=== PATIENT | female | born 1955 | race Hispanic/Latino ===

== ENCOUNTER 2019-01-02 19:26 | Emergency (ER) | payer OTHER ==
[~2019-01-02] VITALS: Ht 157.5 cm; Wt 66.2 kg
[~2019-01-02 19:26] MED LIST: CALCIUM 600 +1 EAC8 PO; CENTRUM TABLET1 EACH PO; LISINOPRIL20 MG PO; VICODIN ES 7.51 EACH PO; VITAMIN B12 PO
--- OUTSIDE RECORDS SUMMARY | 2019-01-02 19:31 | XMS REPORT ---
Author Author Sarah Ellis Organization [employer] Address Unknown Phone Unavailable Care Team Providers Care Supply Chain Business Analyst Name Role Phone Sarah Ellis CP Unavailable Allergies, Adverse Reactions, Alerts Substance Reaction Event Type sulfa shortness of breath Drug Allergy Problems Problem Type Condition Code Onset Dates Condition Status Problem Essential hypertension I10 Active Problem Colon cancer screening Z12.11 Active Problem Diffuse cystic mastopathy of right breast N60.11 Active Problem Adjustment disorder with anxiety F43.22 Active Problem Neuropathy G62.9 Active Problem RLS (restless legs syndrome) G25.81 Active Problem Cervical cancer screening Z12.4 Active Problem Breast cancer screening Z12.39 Active Problem Gastroesophageal reflux disease without esophagitis K21.9 Active Problem Fibrocystic breast disease, unspecified laterality N60.19 Active Assessment Mild anemia D64.9 Active Assessment Leg cramps R25.2 Active Assessment RLS (restless legs syndrome) G25.81 Active Medications Medication Code System Code Instructions Start Date End Date Status Dosage Vitamin D [facility] [address]-15 Once a day Active 2 tablets Lisinopril [facility] 81836142509 20 MG Orally Once a day Active 1 tablet Amoxicillin [facility] [address]-24 875 MG Orally every 12 hrs for 10 days Active 1 tablet Tobramycin-Dexamethasone [facility] 59903826502 0.3-0.1 % Ophthalmic every 6 hrs Mar 13, 2018 Active 1 drop into affected eye Alive Once Daily Womens 50+ [facility] [address] Active not defined Cyanocobalamin [facility] [address]-17 1000 MCG Sublingual Once a day Jun 12, 2018 Dec 09, 2018 Active 1 tablet under the tongue and allow to dissolve Sertraline HCl [facility] 64079631203 25 MG Orally Once a day Jan 12, 2018 Active 1 tablet Xanax [facility] 80125807392 0.25 MG Orally once a day as needed Jan 12, 2018 Active 1 tablet Tamiflu [facility] 41647424626 75 MG Orally Twice a day Active 1 capsule Ropinirole HCl [facility] 21584707838 0.25 MG Orally Once a day Active 1 tablet 1 to 3 hours before bedtime Vital Signs Date/Time: Jun 12, 2018 BMI 25.51 Index Weight 144 lbs Height 63 in Temperature 98.1 F Blood Pressure Diastolic 79 mm Hg Blood Pressure Systolic 128 mm Hg Results No Known Results Summary Purpose [employer] Submission
--- OUTSIDE RECORDS SUMMARY | 2019-01-02 19:31 | XMS REPORT ---
Author Author Sarah Ellis Organization [employer] Address Unknown Phone Unavailable Care Team Providers Care Pbx Operator Name Role Phone Sarah Ellis CP Unavailable Allergies, Adverse Reactions, Alerts Substance Reaction Event Type sulfa shortness of breath Drug Allergy Problems Problem Type Condition Code Onset Dates Condition Status Assessment Closed nondisplaced fracture of phalanx of right little finger with routine healing, unspecified phalanx, subsequent encounter S62.606D Active Assessment Dog bite, initial encounter W54.0XXA Active Assessment Cellulitis of right hand L03.113 Active Problem Fibrocystic breast disease, unspecified laterality N60.19 Active Problem Diffuse cystic mastopathy of right breast N60.11 Active Problem Gastroesophageal reflux disease without esophagitis K21.9 Active Problem Colon cancer screening Z12.11 Active Problem Cervical cancer screening Z12.4 Active Problem Essential hypertension I10 Active Problem Breast cancer screening Z12.39 Active Medications Medication Code System Code Instructions Start Date End Date Status Dosage Alive Once Daily Womens 50+ [facility] [address] Active not defined Lisinopril [facility] 20710498869 20 MG Orally Once a day Active 1 tablet Pantoprazole Sodium [facility] 47757031698 40 MG Orally Once a day October 21, 2016 Active 1 tablet Amoxicillin-Pot Clavulanate [facility] 25848871168 875-125 MG Orally every 12 hrs Twice a day Active 1 tablet Vitamin D [facility] [address]-60 Once a day Active 2 tablets Vital Signs Date/Time: Feb 01, 2017 BMI 25.15 Index Weight 142 lbs Height 63 in Temperature 97.2 F Blood Pressure Diastolic 89 mm Hg Blood Pressure Systolic 135 mm Hg Results No Known Results Summary Purpose [employer] Submission
--- OUTSIDE RECORDS SUMMARY | 2019-01-02 19:31 | XMS REPORT ---
Author Author Sarah Ellis Organization [employer] Address Unknown Phone Unavailable Care Team Providers Care Water Taxi Driver Name Role Phone Sarah Ellis CP Unavailable Allergies No Known Allergies Problems Problem Type Condition Code Onset Dates [...] Fibrocystic breast disease, unspecified laterality N60.19 Active Medications No Known Medications Results No Known Results Summary Purpose [employer] Submission
--- OUTSIDE RECORDS SUMMARY | 2019-01-02 19:31 | XMS REPORT ---
Author Author Sarah Ellis Organization [employer] Address Unknown Phone Unavailable Care Team Providers Care Belt Turner Name Role Phone Sarah Ellis CP Unavailable Allergies No Known Allergies Problems Problem Type Condition Code Onset Dates Condition Status Problem Fibrocystic breast disease, unspecified laterality N60.19 Active Problem Diffuse cystic mastopathy of right breast N60.11 Active Problem Gastroesophageal reflux disease without esophagitis K21.9 Active Problem Colon cancer screening Z12.11 Active Problem Cervical cancer screening Z12.4 Active Problem Essential hypertension I10 Active Problem Breast cancer screening Z12.39 Active Medications No Known Medications Results No Known Results Summary Purpose [employer] Submission
--- OUTSIDE RECORDS SUMMARY | 2019-01-02 19:31 | XMS REPORT ---
Author Author Sarah Ellis Organization [employer] Address Unknown Phone Unavailable Care Team Providers Care Supervisor Water Treatment Plant Name Role Phone Sarah Ellis CP Unavailable Allergies No Known Allergies Problems Problem Type Condition Code Onset Dates Condition Status Assessment Essential hypertension I10 Active Problem Essential hypertension I10 Active Problem Diffuse cystic mastopathy of right breast N60.11 Active Problem Gastroesophageal reflux disease without esophagitis K21.9 Active Problem Cervical cancer screening Z12.4 Active Problem Colon cancer screening Z12.11 Active Problem Breast cancer screening Z12.39 Active Problem Fibrocystic breast disease, unspecified laterality N60.19 Active Medications Medication Code System Code Instructions Start Date End Date Status Dosage Lisinopril [facility] [address]-20 20 MG Orally Once a day Active 1 tablet Results No Known Results Summary Purpose [employer] Submission
--- OUTSIDE RECORDS SUMMARY | 2019-01-02 19:31 | XMS REPORT ---
Author Author Sarah Ellis Organization [employer] Address Unknown Phone Unavailable Care Team Providers Care Post Splitter Name Role Phone Sarah Ellis CP Unavailable [...] Start Date End Date Status Dosage Lisinopril [facility] [place] 2[place] 85099740009 20 MG Orally Once a day Active 1 tablet Results No Known Results Summary Purpose [employer] Submission
--- OUTSIDE RECORDS SUMMARY | 2019-01-02 19:31 | XMS REPORT ---
Author Author Sarah Ellis Organization [employer] Address Unknown Phone Unavailable Care Team Providers Care Senior Energy Analyst Name Role Phone Sarah Ellis CP [...]
--- OUTSIDE RECORDS SUMMARY | 2019-01-02 19:31 | XMS REPORT ---
Author Author Sarah Ellis Organization [employer] Address Unknown Phone Unavailable Care Team Providers Care Weave Defect Charting Clerk Name Role Phone Sarah Ellis CP Unavailable Allergies, Adverse Reactions, Alerts Substance Reaction Event Type sulfa shortness of breath Drug Allergy Problems Problem Type Condition Code Onset Dates Condition Status Assessment H/O gastric bypass Z98.890 Active Assessment Gastroesophageal reflux disease without esophagitis K21.9 Active Assessment Flatulence/gas pain/belching R14.0 Active Problem Essential hypertension I10 Active Problem Diffuse cystic mastopathy of right breast N60.11 Active Problem Gastroesophageal reflux disease without esophagitis K21.9 Active Problem Cervical cancer screening Z12.4 Active Problem Colon cancer screening Z12.11 Active Problem Breast cancer screening Z12.39 Active Problem Fibrocystic breast disease, unspecified laterality N60.19 Active Medications Medication Code System Code Instructions Start Date End Date Status Dosage Vitamin D [facility] [address]-49 Once a day Active 2 tablets Pantoprazole Sodium [facility] [address]-40 40 MG Orally Once a day October 21, 2016 Active 1 tablet Lisinopril [facility] [address]-53 20 MG Orally Once a day Active 1 tablet Alive Once Daily Womens 50+ [facility] [address] Active not defined Vital Signs Date/Time: October 21, 2016 BMI 25.68 Index Weight 145 lbs Height 63 in Temperature 97.3 F Blood Pressure Diastolic 85 mm Hg Blood Pressure Systolic 126 mm Hg Results No Known Results Summary Purpose [employer] Submission
--- OUTSIDE RECORDS SUMMARY | 2019-01-02 19:31 | XMS REPORT | Continuity of Care Document ---
Author Author [employer] Address Unknown Phone Unavailable Care Team Providers Care Hospital Administrative Assistant Name Role Phone [facility] [employer] Information [employer] Unavailable Unavailable Problems Problem Status Onset Date Classification Date Reported Comments Source H/O gastric bypass Active Diagnosis 10/23/2016 Zoila Bernardo Gastroesophageal reflux disease without esophagitis Active Problem 11/09/2018 Zoila Bernardo Flatulence/gas pain/belching Active Diagnosis 10/23/2016 Zoila Bernardo Essential hypertension Active Problem 11/09/2018 Zoila Bernardo Diffuse cystic mastopathy of right breast Active Problem 11/09/2018 Zoila Bernardo Cervical cancer screening Active Problem 11/09/2018 Zoila Bernardo Breast cancer screening Active Problem 11/09/2018 Zoila Bernardo Fibrocystic breast disease, unspecified laterality Active Problem 11/09/2018 Zoila Bernardo Closed nondisplaced fracture of phalanx of right little finger with routine healing, unspecified phalanx, subsequent encounter Active Diagnosis 02/05/2017 Zoila Bernardo Dog bite, initial encounter Active Diagnosis 02/05/2017 Zoila Bernardo Cellulitis of right hand Active Diagnosis 02/05/2017 Zoila Bernardo Neuropathy Active Problem 11/09/2018 Zoila Bernardo Acute bronchitis, unspecified organism Active Diagnosis 11/17/2017 Zoila Bernardo Acute non-recurrent frontal sinusitis Active Diagnosis 06/20/2017 Zoila Bernardo Acute pharyngitis, unspecified etiology Active Diagnosis 06/20/2017 Zoila Bernardo Adjustment disorder with anxiety Active Problem 11/09/2018 Zoila Bernardo RLS (restless legs syndrome) Active Problem 11/09/2018 Zoila Bernardo Encounter to establish care Active Diagnosis 07/22/2016 Zoila Bernardo Acute cystitis without hematuria Active Diagnosis 01/28/2018 Zoila Bernardo Bereavement Active Diagnosis 01/20/2018 Zoila Bernardo Mild anemia Active Diagnosis 06/19/2018 Eandebbie Laurentelisa Leg cramps Active Diagnosis 06/19/2018 Zoila Laurentelisa Atypical chest pain Active Diagnosis 03/15/2018 Quincyjasmeetdebbie Travisisa Acute bacterial conjunctivitis of right eye Active Diagnosis 03/15/2018 Quincyjasmeetdebbie Laurentelisa Pain, eye, right Active Diagnosis 03/15/2018 Zoila Laurentelisa Foot callus Active Diagnosis 11/09/2018 Quincyjasmeetdebbie Laurentelisa Calcaneal spur of left foot Active Diagnosis 11/09/2018 Zoila Laurentelisa Bitten by dog, subsequent encounter Active Diagnosis 05/19/2018 Quincyjasmeetdebbie Laurentelisa Dizziness Active Diagnosis 02/13/2018 Quincyjasmeetdebbie Laurentelisa Recurrent UTI Active Diagnosis 02/13/2018 Zoila Laurentelisa Puncture wound of right hand without foreign body, subsequent encounter Active Diagnosis 05/19/2018 Zoila Laurentelisa Acute laryngitis and tracheitis Active Diagnosis 03/24/2018 Quincyjasmeetdebbie Laurentelisa Flu-like symptoms Active Diagnosis 03/24/2018 Eandebbie Tova Medications Medication Details Route Status Patient Instructions Ordering Provider Order Date Source Cyanocobalamin 1 tablet under the tongue and allow to dissolve Sublingual Active 1000 MCG Sublingual Once a day [facility] 06/12/2018 Zoila Bernardo Promethazine-DM 5 ml as needed Orally Active 6.25-15 MG/5ML Orally every 8 hrs as needed [facility] 03/25/2018 Zoila Bernardo Azithromycin 2 tablets on the first day and 1 tablet daily for 4 days Orally Active 250 MG Orally Once a day [facility] 03/20/2018 Zoila Bernardo Tobramycin-Dexamethasone 1 drop into affected eye Ophthalmic Active 0.3-0.1 % Ophthalmic every 6 hrs [facility] 03/13/2018 Zoila Bernardo Ciprofloxacin HCl 1 tablet Orally Active 500 MG Orally every 12 hrs [facility] 02/06/2018 Zoila Bernardo Phenazopyridine HCl 2 tablets after meals Orally Active 100 mg Orally daily [facility] 02/06/2018 Zoila Bernardo Fluconazole 1 tablet Orally Active 150 MG Orally [facility] 02/06/2018 Zoila Bernardo Pyridium 1 tablet Orally Active 100 MG Orally daily for 7 days [facility] 01/24/2018 Zoila Bernardo Keflex 1 capsule Orally Active 500 MG Orally every 12 hrs [facility] 01/23/2018 [facility] Sertraline HCl 1 tablet Orally Active 25 MG Orally Once a day [facility] 01/12/2018 [facility] Xanax 1 tablet Orally Active 0.25 MG Orally once a day as needed [facility] 01/12/2018 [facility] Promethazine-Codeine 5 ml as needed Orally Active 6.25-10 MG/5ML Orally every 8 hrs [facility] 06/08/2017 [facility] Cefdinir 1 capsule Orally Active 300 MG Orally every 12 hrs [facility] 06/08/2017 [facility] Pantoprazole Sodium 1 tablet Orally Active 40 MG Orally Once a day [facility] 10/21/2016 [facility] Pantoprazole Sodium 1 tablet Orally Active 40 MG Orally Once a day [facility] 10/21/2016 [facility] Vitamin D 2 tablets NA Active Once a day [facility] Lisinopril 1 tablet Orally Active 20 MG Orally Once a day [facility] Alive Once Daily Womens 50+ not defined NA Active [facility] Lisinopril 1 tablet Orally Active 20 MG Orally Once a day [facility] Amoxicillin-Pot Clavulanate 1 tablet Orally Active 875-125 MG Orally every 12 hrs Twice a day [facility] Amoxicillin-Pot Clavulanate 1 tablet Orally Active 875-125 MG Orally every 12 hrs Twice a day [facility] Promethazine-Codeine 5 ml as needed Orally Active 6.25-10 MG/5ML Orally three times a day (tid) as needed (prn) [facility] Azithromycin 2 tablets on the first day, then 1 tablet daily for 4 days Orally Active 250 MG Orally Once a day [facility] Amoxicillin 1 tablet Orally Active 875 MG Orally every 12 hrs for 10 days [facility] Tamiflu 1 capsule Orally Active 75 MG Orally Twice a day [facility] Ropinirole HCl 1 tablet 1 to 3 hours before bedtime Orally Active 0.25 MG Orally Once a day [facility] Amoxicillin 1 tablet Orally Active 875 MG Orally every 12 hrs for 10 days [facility] Enayet Rahim Allergies, Adverse Reactions, Alerts Substance Category Reaction Severity Reaction type Status Date Reported Comments Source sulfa Adverse Reaction shortness of breath Adverse Reaction Active 11/06/2018 Enayet Rahim Immunizations No Data Provided for This Section Results No Data Provided for This Section Pathology Reports No Data Provided for This Section Diagnostic Reports No Data Provided for This Section Consultation Notes No Data Provided for This Section Discharge Summaries No Data Provided for This Section History and Physicals No Data Provided for This Section Vital Signs Vital Sign Value Date Comments Source Weight 147 11/06/2018 Enayet Rahim Height 63 11/06/2018 Enayet Rahim Temperature Oral (F) 96.7 F 11/06/2018 Enayet Rahim Diastolic (mm Hg) 70 11/06/2018 Enayet Rahim Systolic (mm Hg) 116 11/06/2018 Enayet Rahim Weight 144 06/12/2018 Enayet Rahim Height 63 06/12/2018 Enayet Rahim Temperature Oral (F) 98.1 F 06/12/2018 Enayet Rahim Diastolic (mm Hg) 79 06/12/2018 Enayet Rahim Systolic (mm Hg) 128 06/12/2018 Enayet Rahim Weight 148 05/12/2018 Enayet Rahim Height 63 05/12/2018 Enayet Rahim Temperature Oral (F) 98.1 F 05/12/2018 Enayet Rahim Diastolic (mm Hg) 89 05/12/2018 Enayet Rahim Systolic (mm Hg) 140 05/12/2018 Enayet Rahim Weight 142 03/20/2018 Enayet Rahim Height 63 03/20/2018 Enayet Rahim Temperature Oral (F) 98.7 F 03/20/2018 Enayet Rahim Diastolic (mm Hg) 87 03/20/2018 Enayet Rahim Systolic (mm Hg) 138 03/20/2018 Enayet Rahim Weight 144.5 03/13/2018 Enayet Rahim Height 63 03/13/2018 Enayet Rahim Temperature Oral (F) 98.3 F 03/13/2018 Enayet Rahim Diastolic (mm Hg) 80 03/13/2018 Enayet Rahim Systolic (mm Hg) 142 03/13/2018 Enayet Rahim Weight 144 02/06/2018 Enayet Rahim Height 63 02/06/2018 Enayet Rahim Temperature Oral (F) 98.3 F 02/06/2018 Enayet Rahim Diastolic (mm Hg) 72 02/06/2018 Enayet Rahim Systolic (mm Hg) 122 02/06/2018 Enayet Rahim Weight 144.5 01/23/2018 Enayet Rahim Height 63 01/23/2018 Enayet Rahim Temperature Oral (F) 98.3 F 01/23/2018 Enayet Rahim Diastolic (mm Hg) 77 01/23/2018 Enayet Rahim Systolic (mm Hg) 123 01/23/2018 Enayet Rahim Weight 140 01/12/2018 Enayet Rahim Height 63 01/12/2018 Enayet Rahim Temperature Oral (F) 99.1 F 01/12/2018 Enayet Rahim Diastolic (mm Hg) 80 01/12/2018 Enayet Rahim Systolic (mm Hg) 137 01/12/2018 Enayet Rahim Weight 142 10/31/2017 Enayet Rahim Height 63 10/31/2017 Enayet Rahim Temperature Oral (F) 98.6 F 10/31/2017 Enayet Rahim Diastolic (mm Hg) 77 10/31/2017 Enayet Rahim Systolic (mm Hg) 130 10/31/2017 Enayet Rahim Weight 142 10/28/2017 Enayet Rahim Height 63 10/28/2017 Enayet Rahim Temperature Oral (F) 98.5 F 10/28/2017 Enayet Rahim Diastolic (mm Hg) 77 10/28/2017 Enayet Rahim Systolic (mm Hg) 131 10/28/2017 Enayet Rahim Weight 141 06/08/2017 Enayet Rahim Height 63 06/08/2017 Enayet Rahim Temperature Oral (F) 98.6 F 06/08/2017 Enayet Rahim Diastolic (mm Hg) 79 06/08/2017 Enayet Rahim Systolic (mm Hg) 128 06/08/2017 Enayet Rahim Weight 142 02/01/2017 Enayet Rahim Height 63 02/01/2017 Enayet Rahim Temperature Oral (F) 97.2 F 02/01/2017 Enayet Rahim Diastolic (mm Hg) 89 02/01/2017 Enayet Rahim Systolic (mm Hg) 135 02/01/2017 Enayet Rahim Weight 144 01/19/2017 Enayet Rahim Height 63 01/19/2017 Enayet Rahim Temperature Oral (F) 98.3 F 01/19/2017 Enayet Rahim Diastolic (mm Hg) 77 01/19/2017 Enayet Rahim Systolic (mm Hg) 112 01/19/2017 Enayet Rahim Weight 145 10/21/2016 Enayet Rahim Height 63 10/21/2016 Enayet Rahim Temperature Oral (F) 97.3 F 10/21/2016 Enayet Rahim Diastolic (mm Hg) 85 10/21/2016 Enayet Rahim Systolic (mm Hg) 126 10/21/2016 Enayet Rahim Weight 147 07/20/2016 Enayet Rahim Height 63 07/20/2016 Enayet Rahim Temperature Oral (F) 97.3 F 07/20/2016 Enayet Rahim Diastolic (mm Hg) 61 07/20/2016 Enayet Rahim Systolic (mm Hg) 105 07/20/2016 Enayet Rahim Encounters No Data Provided for This Section Procedures No Data Provided for This Section Assessment and Plan No Data Provided for This Section Plan of Care No Data Provided for This Section Social History No Data Provided for This Section Family History No Data Provided for This Section Advance Directives No Data Provided for This Section Functional Status No Data Provided for This Section
--- OUTSIDE RECORDS SUMMARY | 2019-01-02 19:31 | XMS REPORT ---
Author Author Sarah Ellis Organization [employer] Address Unknown Phone Unavailable Care Team Providers Care Disability Aide Name Role Phone Sarah Ellis CP Unavailable Allergies, Adverse Reactions, Alerts Substance Reaction Event Type sulfa shortness of breath Drug Allergy Problems Problem Type Condition Code Onset Dates Condition Status Assessment Dog bite, initial encounter W54.0XXA Active [...] Status Dosage Alive Once Daily Womens [address]+ [facility] [address] Active not defined Pantoprazole Sodium [facility] 16613851634 40 MG Orally Once a day October 21, 2016 Active [address] [facility] 12092565833 20 MG Orally Once a day Active 1 tablet Amoxicillin-Pot Clavulanate [facility] [address]-35 875-125 MG Orally every 12 hrs Twice a day Active 1 tablet Vitamin D [facility] [address]-53 Once a day Active 2 tablets Vital Signs Date/Time: Jan 19, 2017 BMI 25.51 Index Weight 144 lbs Height 63 in Temperature 98.3 F Blood Pressure Diastolic 77 mm Hg Blood Pressure Systolic 112 mm Hg Results No Known Results Summary Purpose [employer] Submission
--- OUTSIDE RECORDS SUMMARY | 2019-01-02 19:31 | XMS REPORT ---
Author Author Sarah Ellis Organization [employer] Address Unknown Phone Unavailable Care Team Providers Care Global Implementation Manager Name Role Phone Sarah Ellis CP Unavailable Allergies, Adverse Reactions, Alerts Substance Reaction Event Type sulfa shortness of breath Drug Allergy Problems Problem Type Condition Code Onset Dates Condition Status Assessment Fibrocystic breast disease, unspecified laterality N60.19 Active Assessment Essential hypertension I10 Active Assessment Breast cancer screening Z12.39 Active Problem Diffuse cystic mastopathy of right breast N60.11 Active Problem Breast cancer screening Z12.39 Active Problem Essential hypertension I10 Active Problem Colon cancer screening Z12.11 Active Assessment Encounter to establish care Z76.89 Active Problem Fibrocystic breast disease, unspecified laterality N60.19 Active Problem Cervical cancer screening Z12.4 Active Assessment Dog bite, initial encounter W54.0XXA Active Assessment Colon cancer screening Z12.11 Active Assessment Cervical cancer screening Z12.4 Active Medications Medication Code System Code Instructions Start Date End Date Status Dosage Alive Once Daily Womens 50+ [facility] [address] Active not defined Vitamin D [facility] [address]-15 Once a day Active 2 tablets Lisinopril [facility] [address]-01 20 MG Orally Once a day Active 1 tablet Vital Signs Date/Time: July 20, 2016 BMI 26.04 Index Weight 147 lbs Height 63 in Temperature 97.3 F Blood Pressure Diastolic 61 mm Hg Blood Pressure Systolic 105 mm Hg Results No Known Results Summary Purpose [employer] Submission
--- OUTSIDE RECORDS SUMMARY | 2019-01-02 19:32 | XMS REPORT ---
Author Author Sarah Ellis Organization [employer] Address Unknown Phone Unavailable Care Team Providers Care Analytical Tech Name Role Phone Sarah Ellis CP Unavailable Allergies No Known Allergies Problems Problem Type Condition Code Onset Dates Condition Status Problem Colon cancer screening Z12.11 Active Problem Cervical cancer screening Z12.4 Active Problem Neuropathy G62.9 Active Problem Gastroesophageal reflux disease without esophagitis K21.9 Active Problem Adjustment disorder with anxiety F43.22 Active Problem Essential hypertension I10 Active Problem Breast cancer screening Z12.39 Active Problem Fibrocystic breast disease, unspecified laterality N60.19 Active Problem Diffuse cystic mastopathy of right breast N60.11 Active Medications Medication Code System Code Instructions Start Date End Date Status Dosage Azithromycin [facility] 55822464159 250 MG Orally Once a day Mar 20, 2018 Mar 25, 2018 Active 2 tablets on the first day and 1 tablet daily for 4 days Results No Known Results Summary Purpose [employer] Submission
--- OUTSIDE RECORDS SUMMARY | 2019-01-02 19:32 | XMS REPORT ---
Author Author Sarah Ellis Organization [employer] Address Unknown Phone Unavailable Care Team Providers Care Upper Tier Name Role Phone Sarah Ellis CP Unavailable Allergies, Adverse Reactions, Alerts Substance Reaction Event Type sulfa shortness of breath Drug Allergy Problems Problem Type Condition Code Onset Dates Condition Status Problem Colon cancer screening Z12.11 Active Problem Cervical cancer screening Z12.4 Active Assessment Bitten by dog, subsequent encounter W54.0XXD Active Problem Neuropathy G62.9 Active Problem Gastroesophageal reflux disease without esophagitis K21.9 Active Problem Adjustment disorder with anxiety F43.22 Active Problem Essential hypertension I10 Active Problem Breast cancer screening Z12.39 Active Problem Fibrocystic breast disease, unspecified laterality N60.19 Active Problem Diffuse cystic mastopathy of right breast N60.11 Active Medications Medication Code System Code Instructions Start Date End Date Status Dosage Xanax [facility] 38452322193 0.25 MG Orally once a day as needed Jan 12, 2018 Active 1 tablet Tamiflu [facility] 17151939424 75 MG Orally Twice a day Active 1 capsule Alive Once Daily Womens 50+ [facility] [address] Active not defined Vitamin D [facility] [address]-86 Once a day Active 2 tablets Tobramycin-Dexamethasone [facility] 71602653766 0.3-0.1 % Ophthalmic every 6 hrs Mar 13, 2018 Active 1 drop into affected eye Sertraline HCl [facility] 29073378604 25 MG Orally Once a day Jan 12, 2018 Active 1 tablet Amoxicillin [facility] [address]-42 875 MG Orally every 12 hrs for 10 days Active 1 tablet Lisinopril [facility] 12782710706 20 MG Orally Once a day Active 1 tablet Vital Signs Date/Time: May 12, 2018 BMI 26.21 Index Weight 148 lbs Height 63 in Temperature 98.1 F Blood Pressure Diastolic 89 mm Hg Blood Pressure Systolic 140 mm Hg Results No Known Results Summary Purpose [employer] Submission
--- OUTSIDE RECORDS SUMMARY | 2019-01-02 19:32 | XMS REPORT ---
Author Author Sarah Ellis Organization [employer] Address Unknown Phone Unavailable Care Team Providers Care Development Mgr Name Role Phone Sarah Ellis CP Unavailable Allergies No Known Allergies Problems Problem Type Condition Code Onset Dates Condition Status Assessment Neuropathy G62.9 Active Problem Cervical cancer screening Z12.4 Active Assessment Essential hypertension I10 Active Problem Gastroesophageal reflux disease without esophagitis K21.9 Active Problem Fibrocystic breast disease, unspecified laterality N60.19 Active Problem Neuropathy G62.9 Active Problem Breast cancer screening Z12.39 Active Problem Colon cancer screening Z12.11 Active Problem Diffuse cystic mastopathy of right breast N60.11 Active Problem Essential hypertension I10 Active Medications No Known Medications Vital Signs Date/Time: October 31, 2017 BMI 25.15 Index Weight 142 lbs Height 63 in Temperature 98.6 F Blood Pressure Diastolic 77 mm Hg Blood Pressure Systolic 130 mm Hg Results No Known Results Summary Purpose [employer] Submission
--- OUTSIDE RECORDS SUMMARY | 2019-01-02 19:32 | XMS REPORT ---
Author Author Sarah Ellis Organization [employer] Address Unknown Phone Unavailable Care Team Providers Care Photographic Processor Name Role Phone Sarah Ellis CP Unavailable Allergies, Adverse Reactions, Alerts Substance Reaction Event Type sulfa shortness of breath Drug Allergy Problems Problem Type Condition Code Onset Dates Condition Status Problem Essential hypertension I10 Active Problem Colon cancer screening Z12.11 Active Problem Diffuse cystic mastopathy of right breast N60.11 Active Assessment Foot callus L84 Active Assessment Calcaneal spur of left foot M77.32 Active Problem Adjustment disorder with anxiety F43.22 Active Problem Neuropathy G62.9 Active Problem RLS (restless legs syndrome) G25.81 Active Problem Cervical cancer screening Z12.4 Active Problem Breast cancer screening Z12.39 Active Problem Gastroesophageal reflux disease without esophagitis K21.9 Active Problem Fibrocystic breast disease, unspecified laterality N60.19 Active Medications Medication Code System Code Instructions Start Date End Date Status Dosage Lisinopril [facility] 11983955101 20 MG Orally Once a day Active 1 tablet Cyanocobalamin [facility] [address]-64 1000 MCG Sublingual Once a day Jun 12, 2018 Dec 09, 2018 Active 1 tablet under the tongue and allow to dissolve Amoxicillin [facility] 63027557349 875 MG Orally every 12 hrs for 10 days Active 1 tablet Tobramycin-Dexamethasone [facility] 83181100538 0.3-0.1 % Ophthalmic every 6 hrs Mar 13, 2018 Active 1 drop into affected eye Ropinirole HCl [facility] 83280805566 0.25 MG Orally Once a day Active 1 tablet 1 to 3 hours before bedtime Alive Once Daily Womens 50+ [facility] [address] Active not defined Tamiflu ND 85807663556 75 MG Orally Twice a day Active 1 capsule Sertraline HCl [facility] 36601133406 25 MG Orally Once a day Jan 12, 2018 Active 1 tablet Xanax [facility] 43510086589 0.25 MG Orally once a day as needed Jan 12, 2018 Active 1 tablet Vitamin D [facility] [address]-57 Once a day Active 2 tablets Vital Signs Date/Time: November 06, 2018 BMI 26.04 Index Weight 147 lbs Height 63 in Temperature 96.7 F Blood Pressure Diastolic 70 mm Hg Blood Pressure Systolic 116 mm Hg Results No Known Results Summary Purpose [employer] Submission
--- OUTSIDE RECORDS SUMMARY | 2019-01-02 19:32 | XMS REPORT ---
Author Author Sarah Ellis Organization [employer] Address Unknown Phone Unavailable Care Team Providers Care Pad Cutter Name Role Phone Sarah Ellis CP Unavailable Allergies, Adverse Reactions, Alerts Substance Reaction Event Type sulfa shortness of breath Drug Allergy Problems Problem Type Condition Code Onset Dates Condition Status Assessment Essential hypertension I10 Active Problem Cervical cancer screening Z12.4 Active Assessment Acute bronchitis, unspecified organism J20.9 Active Problem Gastroesophageal reflux disease without esophagitis K21.9 Active Problem Fibrocystic breast disease, unspecified laterality N60.19 Active Problem Neuropathy G62.9 Active Problem Breast cancer screening Z12.39 Active Problem Colon cancer screening Z12.11 Active Problem Diffuse cystic mastopathy of right breast N60.11 Active Problem Essential hypertension I10 Active Assessment Colon cancer screening Z12.11 Active Assessment Neuropathy G62.9 Active Assessment Gastroesophageal reflux disease without esophagitis K21.9 Active Medications Medication Code System Code Instructions Start Date End Date Status Dosage Lisinopril [facility] 99175868551 20 MG Orally Once a day Active 1 tablet Promethazine-Codeine [facility] 53841896854 6.25-10 MG/5ML Orally three times a day (tid) as needed (prn) Active 5 ml as needed Alive Once Daily Womens 50+ [facility] [address] Active not defined Amoxicillin-Pot Clavulanate [facility] 59030409440 875-125 MG Orally every 12 hrs Twice a day Active 1 tablet Pantoprazole Sodium [facility] 20576009289 40 MG Orally Once a day October 21, 2016 Active 1 tablet Azithromycin [facility] 25260936416 250 MG Orally Once a day Active 2 tablets on the first day, then 1 tablet daily for 4 days Vitamin D [facility] [address]-34 Once a day Active 2 tablets Vital Signs Date/Time: October 28, 2017 BMI 25.15 Index Weight 142 lbs Height 63 in Temperature 98.5 F Blood Pressure Diastolic 77 mm Hg Blood Pressure Systolic 131 mm Hg Results No Known Results Summary Purpose [employer] Submission
--- OUTSIDE RECORDS SUMMARY | 2019-01-02 19:32 | XMS REPORT ---
Author Author Sarah Ellis Organization [employer] Address Unknown Phone Unavailable Care Team Providers Care Forest Pathology Teacher Name Role Phone Sarah Ellis CP Unavailable Allergies, Adverse Reactions, Alerts Substance Reaction Event Type sulfa shortness of breath Drug Allergy Problems Problem Type Condition Code Onset Dates Condition Status Problem Colon cancer screening Z12.11 Active Problem Cervical cancer screening Z12.4 Active Assessment Dizziness R42 Active Assessment Recurrent UTI N39.0 Active Problem Neuropathy G62.9 Active Problem Gastroesophageal reflux disease without esophagitis K21.9 Active Problem Adjustment disorder with anxiety F43.22 Active Problem Essential hypertension I10 Active Problem Breast cancer screening Z12.39 Active Problem Fibrocystic breast disease, unspecified laterality N60.19 Active Problem Diffuse cystic mastopathy of right breast N60.11 Active Medications Medication Code System Code Instructions Start Date End Date Status Dosage Vitamin D [facility] [address]-96 Once a day Active 2 tablets Ciprofloxacin HCl [facility] 19471052386 500 MG Orally every 12 hrs Feb 06, 2018 Feb 16, 2018 Active 1 tablet Xanax [facility] 04233645840 0.25 MG Orally once a day as needed Jan 12, 2018 Active 1 tablet Sertraline HCl [facility] 81697031828 25 MG Orally Once a day Jan 12, 2018 Active 1 tablet Phenazopyridine HCl [facility] 35787745151 100 mg Orally daily Feb 06, 2018 Feb 13, 2018 Active 2 tablets after meals Alive Once Daily Womens 50+ [facility] [address] Active not defined Fluconazole ND 88861245045 150 MG Orally Feb 06, 2018 Feb 16, 2018 Active 1 tablet Lisinopril [facility] 16360277814 20 MG Orally Once a day Active 1 tablet Vital Signs Date/Time: Feb 06, 2018 BMI 25.51 Index Weight 144 lbs Height 63 in Temperature 98.3 F Blood Pressure Diastolic 72 mm Hg Blood Pressure Systolic 122 mm Hg Results Name Result Date Reference Range Unit Abnormality Flag CULTURE, URINE, ROUTINE ----CULTURE, URINE, ROUTINE SEE NOTE [id number] Summary Purpose eClinicalWorks Submission
--- OUTSIDE RECORDS SUMMARY | 2019-01-02 19:32 | XMS REPORT ---
Author Author Sarah Ellis Organization [employer] Address Unknown Phone Unavailable Care Team Providers Care Communications Consultant Name Role Phone Sarah Ellis CP Unavailable Allergies, Adverse Reactions, Alerts Substance Reaction Event Type sulfa shortness of breath Drug Allergy Problems Problem Type Condition Code Onset Dates Condition Status Assessment Acute cystitis without hematuria N30.00 Active Problem Colon cancer screening Z12.11 Active [...] Status Dosage Alive Once Daily Womens 50+ [facility] [address] Active not defined Vitamin D [facility] [address]-36 Once a day Active 2 tablets Lisinopril [facility] 78906015154 20 MG Orally Once a day Active 1 tablet Sertraline HCl [facility] 45606366006 25 MG Orally Once a day Jan 12, 2018 Active 1 tablet Xanax [facility] 87106501266 0.25 MG Orally once a day as needed Jan 12, 2018 Active 1 tablet Keflex [facility] 61928189587 500 MG Orally every 12 hrs Jan 23, 2018 Jan 30, 2018 Active 1 capsule Vital Signs Date/Time: Jan 23, 2018 BMI 25.59 Index Weight 144.5 lbs Height 63 in Temperature 98.3 F Blood Pressure Diastolic 77 mm Hg Blood Pressure Systolic 123 mm Hg Results No Known Results Summary Purpose [employer]Works Submission
--- OUTSIDE RECORDS SUMMARY | 2019-01-02 19:32 | XMS REPORT ---
Author Author Sarah Ellis Organization [employer] Address Unknown Phone Unavailable Care Team Providers Care Pigskin Trimmer Name Role Phone Sarah Ellis CP Unavailable Allergies, Adverse Reactions, Alerts Substance Reaction Event Type sulfa shortness of breath Drug Allergy Problems Problem Type Condition Code Onset Dates Condition Status Problem Colon cancer screening Z12.11 Active Problem Cervical cancer screening Z12.4 Active Assessment Acute laryngitis and tracheitis J04.2 Active Assessment Flu-like symptoms R68.89 Active Problem Neuropathy G62.9 Active Problem Gastroesophageal reflux disease without esophagitis K21.9 Active Problem Adjustment disorder with anxiety F43.22 Active Problem Essential hypertension I10 Active Problem Breast cancer screening Z12.39 Active Problem Fibrocystic breast disease, unspecified laterality N60.19 Active Problem Diffuse cystic mastopathy of right breast N60.11 Active Medications Medication Code System Code Instructions Start Date End Date Status Dosage Vitamin D [facility] [address]-19 Once a day Active 2 tablets Azithromycin [facility] 92960058408 250 MG Orally Once a day Mar 20, 2018 Mar 25, 2018 Active 2 tablets on the first day and 1 tablet daily for 4 days Xanax [facility] 23543940000 0.25 MG Orally once a day as needed Jan 12, 2018 Active 1 tablet Alive Once Daily Womens 50+ [facility] [address] Active not defined Lisinopril [facility] 05907981558 20 MG Orally Once a day Active 1 tablet Tamiflu [facility] 60968840169 75 MG Orally Twice a day Active 1 capsule Promethazine-DM [facility] 52807737957 6.25-15 MG/5ML Orally every 8 hrs as needed Mar 25, 2018 Active 5 ml as needed Tobramycin-Dexamethasone [facility] 96970334547 0.3-0.1 % Ophthalmic every 6 hrs Mar 13, 2018 Active 1 drop into affected eye Sertraline HCl [facility] 45660013906 25 MG Orally Once a day Jan 12, 2018 Active 1 tablet Vital Signs Date/Time: Mar 20, 2018 BMI 25.15 Index Weight 142 lbs Height 63 in Temperature 98.7 F Blood Pressure Diastolic 87 mm Hg Blood Pressure Systolic 138 mm Hg Results No Known Results Summary Purpose [employer]ClinicalWorks Submission
--- OUTSIDE RECORDS SUMMARY | 2019-01-02 19:32 | XMS REPORT ---
Author Author Sarah Ellis Organization [employer] Address Unknown Phone Unavailable Care Team Providers Care Wine Consultant Name Role Phone Sarah Ellis CP Unavailable Allergies, Adverse Reactions, Alerts Substance Reaction Event Type sulfa shortness of breath Drug Allergy Problems Problem Type Condition Code Onset Dates Condition Status Assessment Acute non-recurrent frontal sinusitis J01.10 Active Assessment Acute pharyngitis, unspecified etiology J02.9 Active Problem Fibrocystic breast disease, unspecified laterality N60.19 Active Problem Diffuse cystic mastopathy of right breast N60.11 Active Problem Gastroesophageal reflux disease without esophagitis K21.9 Active Problem Colon cancer screening Z12.11 Active Problem Cervical cancer screening Z12.4 Active Problem Essential hypertension I10 Active Problem Breast cancer screening Z12.39 Active Medications Medication Code System Code Instructions Start Date End Date Status Dosage Vitamin D [facility] [address]-46 Once a day Active 2 tablets Alive Once Daily Womens 50+ [facility] [address] Active not defined Pantoprazole Sodium [facility] 74101979604 40 MG Orally Once a day October 21, 2016 Active 1 tablet Amoxicillin-Pot Clavulanate [facility] 80669206951 875-125 MG Orally every 12 hrs Twice a day Active 1 tablet Lisinopril [facility] 76075594553 20 MG Orally Once a day Active 1 tablet Promethazine-Codeine [facility] 50760388595 6.25-10 MG/5ML Orally every 8 hrs Jun 08, 2017 Jun 13, 2017 Active 5 ml as needed Cefdinir [facility] 66945549709 300 MG Orally every 12 hrs Jun 08, 2017 Jun 18, 2017 Active 1 capsule Vital Signs Date/Time: Jun 08, 2017 BMI 24.97 Index Weight 141 lbs Height 63 in Temperature 98.6 F Blood Pressure Diastolic 79 mm Hg Blood Pressure Systolic 128 mm Hg Results No Known Results Summary Purpose eClinicalWorks Submission
--- OUTSIDE RECORDS SUMMARY | 2019-01-02 19:32 | XMS REPORT ---
Author Author Sarah Ellis Organization [employer] Address Unknown Phone Unavailable Care Team Providers Care Web Applications Architect Name Role Phone Sarah Ellis CP Unavailable Allergies, Adverse Reactions, Alerts Substance Reaction Event Type sulfa shortness of breath Drug Allergy Problems Problem Type Condition Code Onset Dates Condition Status Assessment Adjustment disorder with anxiety F43.22 Active Problem Colon cancer screening Z12.11 Active Problem Cervical cancer screening Z12.4 Active Assessment Bereavement Z63.4 Active Problem Neuropathy G62.9 Active Problem Gastroesophageal reflux disease without esophagitis K21.9 Active Problem Adjustment disorder with anxiety F43.22 Active Problem Essential hypertension I10 Active Problem Breast cancer screening Z12.39 Active Problem Fibrocystic breast disease, unspecified laterality N60.19 Active Problem Diffuse cystic mastopathy of right breast N60.11 Active Medications Medication Code System Code Instructions Start Date End Date Status Dosage Vitamin D [facility] [address]-26 Once a day Active 2 tablets Pantoprazole Sodium [facility] 79670654501 40 MG Orally Once a day October 21, 2016 Active 1 tablet Promethazine-Codeine [facility] 91806411633 6.25-10 MG/5ML Orally three times a day (tid) as needed (prn) Active 5 ml as needed Alive Once Daily Womens 50+ [facility] [address] Active not defined Xanax [facility] 88068033789 0.25 MG Orally once a day as needed Jan 12, 2018 Active 1 tablet Lisinopril [facility] 06810924542 20 MG Orally Once a day Active 1 tablet Amoxicillin-Pot Clavulanate [facility] 07165260824 875-125 MG Orally every 12 hrs Twice a day Active 1 tablet Azithromycin [facility] 55225025870 250 MG Orally Once a day Active 2 tablets on the first day, then 1 tablet daily for 4 days Sertraline HCl ND 80333981002 25 MG Orally Once a day Jan 12, 2018 Active 1 tablet Vital Signs Date/Time: Jan 12, 2018 BMI 24.80 Index Weight 140 lbs Height 63 in Temperature 99.1 F Blood Pressure Diastolic 80 mm Hg Blood Pressure Systolic 137 mm Hg Results No Known Results Summary Purpose eClinicalWorks Submission
--- OUTSIDE RECORDS SUMMARY | 2019-01-02 19:32 | XMS REPORT ---
Author Author Sarah Ellis Organization [employer] Address Unknown Phone Unavailable Care Team Providers Care Claims Coordinator Name Role Phone Sarah Ellis CP Unavailable [...] Instructions Start Date End Date Status Dosage Pyridium [facility] 88685777201 100 MG Orally daily for 7 days Jan 24, 2018 Jan 31, 2018 Active 1 tablet Results No Known Results Summary Purpose eClinicalWorks Submission
--- OUTSIDE RECORDS SUMMARY | 2019-01-02 19:32 | XMS REPORT ---
Author Author Sarah Ellis Organization [employer] Address Unknown Phone Unavailable Care Team Providers Care Molasses Feed Mixer Name Role Phone Sarah Ellis CP Unavailable Allergies, Adverse Reactions, Alerts Substance Reaction Event Type sulfa shortness of breath Drug Allergy Problems Problem Type Condition Code Onset Dates Condition Status Problem Colon cancer screening Z12.11 Active Problem Cervical cancer screening Z12.4 Active Assessment Atypical chest pain R07.89 Active Assessment Acute bacterial conjunctivitis of right eye H10.31 Active Assessment Pain, eye, right H57.11 Active Problem Neuropathy G62.9 Active Problem Gastroesophageal reflux disease without esophagitis K21.9 Active Problem Adjustment disorder with anxiety F43.22 Active Problem Essential hypertension I10 Active Problem Breast cancer screening Z12.39 Active Problem Fibrocystic breast disease, unspecified laterality N60.19 Active Problem Diffuse cystic mastopathy of right breast N60.11 Active Medications Medication Code System Code Instructions Start Date End Date Status Dosage Sertraline HCl [facility] 53699178717 25 MG Orally Once a day Jan 12, 2018 Active 1 tablet Lisinopril [facility] 62983882636 20 MG Orally Once a day Active 1 tablet Xanax [facility] 49999897452 0.25 MG Orally once a day as needed Jan 12, 2018 Active 1 tablet Tobramycin-Dexamethasone [facility] 15683476126 0.3-0.1 % Ophthalmic every 6 hrs Mar 13, 2018 Active 1 drop into affected eye Alive Once Daily Womens 50+ [facility] [address] Active not defined Vitamin D [facility] [address]-73 Once a day Active 2 tablets Vital Signs Date/Time: Mar 13, 2018 BMI 25.59 Index Weight 144.5 lbs Height 63 in Temperature 98.3 F Blood Pressure Diastolic 80 mm Hg Blood Pressure Systolic 142 mm Hg Results No Known Results Summary Purpose [employer]Works Submission
--- NOTE | 2019-01-02 20:40 | NUR ---
[facility] NOTIFIED OF DOG BITE, SPOKE WITH DALIA AND SHE STATED PT TO COME TOMORROW TO REPORT DOG BITE. INFO GIVEN TO PATIENT.
[2019-01-02] MEDS ORDERED: BACITRACIN ZINC 0.9GM TP ONE (21:52)
[2019-01-02] MEDS ORDERED: AUGMENTIN 875-1 EACH PO (21:52)
[2019-01-03 02:53] VITALS: BP 167/98
[2019-01-03] MEDS ORDERED: BACITRACIN ZINC 15 GM OINT TOP SCH (09:00)
== END 2019-01-02 22:11 | disposition home or self-care (01) ==
LOC: FSED 19:26
DX: S41.112A Laceration without foreign body of left upper arm, initial encounter (principal); S41.152A Open bite of left upper arm, initial encounter; W54.0XXA Bitten by dog, initial encounter; Y92.008 Other place in unspecified non-institutional (private) residence as the place of occurrence of the external cause; I10 Essential (primary) hypertension; E78.5 Hyperlipidemia, unspecified
CPT/HCPCS: 12001; 99283

== ENCOUNTER → 2020-05-13 | Day surgery (SDC) | payer MEDICARE ==
[2020-05-09 10:59] LABS: EOSINOPHILS # (AUTO) 0.1 (0.0-0.4); EOSINOPHILS % 2.1 % (0.0-6.0); HEMATOCRIT 37.7 % (34.2-44.1); HEMOGLOBIN 11.3 g/dL (12.0-16.0); LYMPHOCYTES # (AUTO) 1.6 (1.0-3.2); LYMPHOCYTES % 40.5 % (18.0-39.1); MONOCYTES # (AUTO) 0.3 (0.2-0.8); MONOCYTES % 8.2 % (4.4-11.3); NEUTROPHILS # (AUTO) 1.9 (2.1-6.9); NEUTROPHILS % 48.2 % (38.7-80.0); PLATELET COUNT 291 x10e3/uL (140-360); RED BLOOD COUNT 4.71 x10e6/uL (3.6-5.1)
[2020-05-09 11:19] LABS: ALANINE AMINOTRANSFERASE 10 IU/L (0-55); ALBUMIN/GLOBULIN RATIO 1.1 (0.8-2.0); ALKALINE PHOSPHATASE 94 IU/L (40-150); BLOOD UREA NITROGEN 16 mg/dL (7-26); BUN/CREATININE RATIO 18 (6-25); CALCIUM 9.4 mg/dL (8.4-10.2); CARBON DIOXIDE 28 mmol/L (22-29); CHLORIDE 107 mmol/L (98-107); CREATININE, SERUM 0.87 mg/dL (0.57-1.11); EST GLOMERULAR FILTRATION RATE > 60 ML/MIN (60-); GLUCOSE 64 mg/dL (74-118); SODIUM 143 mmol/L (136-145)
[~2020-05-13] VITALS: Ht 160 cm; Wt 65.8 kg
[~2020-05-13] MED LIST changes: +ALPRAZOLAM 0.5 MG TAB ONE; +AUGMENTIN 875-1 EACH PO; +CALTRATE 600-D1 EACH PO; +CYCLOBENZAPRINE10 MG PO; +DIPHENHYDRAMINE HCL 25 MG CAP ONE; +FENTANYL CITRATE/PF 100MCG/2 ML INJ ONE; +HEPARIN SOD/SOD CHLORIDE 2,000 ML ONE; +IBUPROFEN200 MG PO; +IOPAMIDOL 370 MG/ML 200 ML INFUS..BTL INJ ONE; +LIDOCAINE HCL 2% LOCAL 20 ML VIAL ONE; +METAXALONE800 MG PO; +MIDAZOLAM HCL 2 MG/2 ML VIAL ONE; +MOTRIN200 MG PO; +MULTI-VITAMIN1 EACH PO; +PREVAGEN PO; +SODIUM CHLORIDE 0.9% 1000ML 1,000 ML ONE; +VERAPAMIL HCL 2.5 MG/ML 2 ML VIAL ONE; +VITAMIN D350 MCG PO
[2020-05-13 15:16] VITALS: BP 114/75
[2020-05-13 15:30] VITALS: BP 112/57
[2020-05-13 16:00] VITALS: BP 124/77
[2020-05-13 16:15] VITALS: BP 123/66
[2020-05-13 16:30] VITALS: BP 115/77
[2020-05-13 17:00] VITALS: BP 114/70
== END | disposition home or self-care (01) ==
LOC: CATH LAB 11:49
PROVIDERS: ATTEND Internal Medicine Interventional Cardiology
DX: I25.118 Atherosclerotic heart disease of native coronary artery with other forms of angina pectoris (principal); I25.2 Old myocardial infarction; R03.0 Elevated blood-pressure reading, without diagnosis of hypertension; Z01.812 Encounter for preprocedural laboratory examination; Z20.822 Contact with and (suspected) exposure to COVID-19; Z86.19 Personal history of other infectious and parasitic diseases; Z82.49 Family history of ischemic heart disease and other diseases of the circulatory system; Z82.3 Family history of stroke
CPT/HCPCS: 36415; 76937; 80053; 85025; 93458; C1769; C1887; J2001; J2250; J3010; J7030; Q9967; U0002; 99152

== ENCOUNTER 2021-03-29 12:02 | Emergency (ER) | payer MEDICARE ==
[~2021-03-29] VITALS: Ht 157.5 cm; Wt 66.2 kg
[~2021-03-29 12:02] MED LIST changes: -ALPRAZOLAM 0.5 MG TAB ONE; -DIPHENHYDRAMINE HCL 25 MG CAP ONE; -FENTANYL CITRATE/PF 100MCG/2 ML INJ ONE; -HEPARIN SOD/SOD CHLORIDE 2,000 ML ONE; -IOPAMIDOL 370 MG/ML 200 ML INFUS..BTL INJ ONE; -LIDOCAINE HCL 2% LOCAL 20 ML VIAL ONE; -MIDAZOLAM HCL 2 MG/2 ML VIAL ONE; -SODIUM CHLORIDE 0.9% 1000ML 1,000 ML ONE; -VERAPAMIL HCL 2.5 MG/ML 2 ML VIAL ONE
[2021-03-29] MEDS ORDERED: AUGMENTIN 875-1 EACH PO (12:18)
[2021-03-29] MEDS ORDERED: IBUPROFEN IB200 MG PO (12:18)
== END 2021-03-29 12:40 | disposition home or self-care (01) ==
LOC: FSED 12:08
DX: S61.250A Open bite of right index finger without damage to nail, initial encounter (principal); Y92.008 Other place in unspecified non-institutional (private) residence as the place of occurrence of the external cause; I10 Essential (primary) hypertension; E78.5 Hyperlipidemia, unspecified; Z98.84 Bariatric surgery status
CPT/HCPCS: 99283

== ENCOUNTER 2024-06-12 14:06 | Emergency (ER) | payer MEDICARE ==
[~2024-06-12] VITALS: Ht 160 cm; Wt 66.0 kg
[~2024-06-12 14:06] MED LIST changes: +ALENDRONATE SOD70 MG; +ATORVASTATIN CA10 MG PO; +CEFDINIR300 MG PO; +IBUPROFEN IB200 MG PO
[2024-06-12] MEDS ORDERED: MELOXICAM15 MG (14:24)
[2024-06-12] MEDS ORDERED: CEFDINIR300 MG PO (14:31)
[2024-06-12 14:36] VITALS: PULSE 60; RESP 18; TEMP 97.4; O2SAT 97
[2024-06-12] MEDS: IBUPROFEN 600 MG TAB PO STA (14:41)
== END 2024-06-12 14:38 | disposition home or self-care (01) ==
LOC: FSED 14:11
DX: R30.0 Dysuria (principal); N39.0 Urinary tract infection, site not specified; R10.30 Lower abdominal pain, unspecified; I10 Essential (primary) hypertension; E78.5 Hyperlipidemia, unspecified; M54.9 Dorsalgia, unspecified; G89.29 Other chronic pain
CPT/HCPCS: 81003; 87086; 87186; 99283